=== PATIENT | male | born 1980 | race Caucasian/White ===

== ENCOUNTER 2023-10-19 15:52 | Outpatient (OUT) | payer OTHER, SELFPAY | END 2023-10-19 15:53 | disposition home or self-care (01) | LOC: SLEEP 15:52 | PROVIDERS: PCP Family Medicine; Visit Provider Family Medicine | DX: F51.01 Primary insomnia (principal); G47.33 Obstructive sleep apnea (adult) (pediatric); E11.69 Type 2 diabetes mellitus with other specified complication; G47.30 Sleep apnea, unspecified | CPT/HCPCS: 95806 ==